=== PATIENT | male | born 1960 | race Caucasian/White ===

== ENCOUNTER → 2017-02-09 | Outpatient (CLI) | payer BC ==
--- NOTE | 2017-02-09 18:32 | RADRPT ---
PROCEDURE: US DVT. CLINICAL INDICATION: Left lower extremity pain. TECHNIQUE: Multiple longitudinal and transverse images of the left lower extremity veins were obta ined with watson scale and color Doppler imaging. 2D grayscale measurements with compression, color D oppler flow, and augmentation was performed. The calf veins were interrogated as well. COMPARISON: No prior studies are available for comparison. FINDINGS: The left common femoral, superficial femoral and popliteal veins are normally compressible throughou t. Color flow demonstrates normal filling of the vessels. Normal waveforms are visualized and ther e is normal response to augmentation. The calf veins are visualized and are equally unremarkable. IMPRESSION: 1. No left lower extremity DVT. RPTAT: HTAR .Parrish Griffiths MD, Date Time Electronically viewed and signed by .Parrish Griffiths MD, MD on 02/09/2017 18:32 .R/
== END | disposition home or self-care (01) ==
LOC: VAS 17:39
PROVIDERS: ATTEND Physician Assistant
DX: M79.605 Pain in left leg (principal); G89.18 Other acute postprocedural pain
CPT/HCPCS: 93971